=== PATIENT | female | born 1975 | race African-American/Black ===

== ENCOUNTER 2022-05-28 16:58 | Inpatient (IN) | payer MEDICAID ==
[~2022-05-28] VITALS: Ht 171.4 cm; Wt 69.0 kg
[2022-05-28 17:33] LABS: BASOPHILS % 0.6 % (0.0-2.0); EOSINOPHILS % 2.8 % (0.0-5.0); HEMATOCRIT. 35.6 % (36.0-48.0); HEMOGLOBIN. 11.5 g/dL (12.0-16.0); LYMPHOCYTES % 28.3 % (20.0-50.0); MEAN CORPUSCULAR HEMOGLOBIN 22.6 pg (28.0-32.0); MEAN CORPUSCULAR VOLUME 70.3 fL (81.0-99.0); MEAN PLATELET VOLUME 8.6 fl (7.4-10.4); MONOCYTES % 7.8 % (2.0-8.0); NEUTROPHILS % 60.5 % (40.0-76.0); PLATELET 232 x1000/uL (130-400); RED BLOOD CELL COUNT 5.07 mill/uL (4.2-5.4); RED CELL DISTRIBUTION WIDTH 23.5 % (11.6-14.6)
[2022-05-28 17:40] LABS: CHLORIDE 108 mEq/L (98-107)
[2022-05-28 17:57] LABS: ETHANOL BLOOD < 10 mg/dL
[2022-05-28 18:00] LABS: HCG SCREEN NEGATIVE
[2022-05-28 18:08] LABS: PLATELET ESTIMATE NORMAL
[2022-05-28 19:55] LABS: CLARITY URINE CLEAR (CLEAR); COLOR URINE YELLOW (YELLOW); KETONES URINE NEGATIVE (NEGATIVE); LEUKOCYTE ESTERASE URINE NEGATIVE (NEGATIVE); NITRITE URINE NEGATIVE (NEGATIVE); OCCULT BLOOD URINE NEGATIVE (NEGATIVE); PROTEIN URINE NEGATIVE (NEGATIVE); SPECIFIC GRAVITY URINE 1.015 (1.005-1.030)
[2022-05-28 20:14] LABS: *AMPHETAMINES SCREEN URINE NEGATIVE (NEGATIVE); *BARBITURATES SCREEN URINE NEGATIVE (NEGATIVE); *BENZODIAZEPINES SCREEN URINE NEGATIVE (NEGATIVE); CANNABINOID URINE SCREEN NEGATIVE (NEGATIVE); METHADONE URINE SCREEN NEGATIVE (NEGATIVE); OPIATES URINE SCREEN NEGATIVE (NEGATIVE); PHENCYCLIDINE URINE SCREEN NEGATIVE (NEGATIVE)
[2022-05-28 20:17] LABS: *COCAINE SCREEN URINE PRESUMTIVE POSITIVE (NEGATIVE)
[2022-05-28] MEDS ORDERED: ASPIRIN 81MG TABLET PO ONE (21:00)
[2022-05-28] MEDS ORDERED: FUROSEMIDE 40MG/4ML VIAL IVP ONE (21:00)
[2022-05-28] MEDS ORDERED: POTASSIUM CHLORIDE 20MEQ TABLET SR PO NR (22:00)
[2022-05-28 23:10] LABS: PHOSPHORUS 3.5 mg/dL (2.5-4.9)
[2022-05-29] MEDS ORDERED: HYDROCODONE/ACETAMINOPHEN 5/325MG TABLET PO PRN (00:15)
[2022-05-29] MEDS ORDERED: GUAIFENESIN 200MG/10ML SUGAR FREE UDC PO PRN (00:15)
[2022-05-29] MEDS ORDERED: HYDRALAZINE 20MG/ML VIAL IV PRN (00:15)
[2022-05-29] MEDS ORDERED: CLONIDINE 0.1MG TABLET PO PRN (00:15)
[2022-05-29] MEDS ORDERED: ONDANSETRON HCL 4MG/2ML INJ IV PRN (00:15)
[2022-05-29] MEDS ORDERED: DIPHENHYDRAMINE 50MG/ML VIAL IV PRN (00:15)
[2022-05-29] MEDS ORDERED: DOCUSATE SODIUM 100MG CAPSULE PO PRN (00:15)
[2022-05-29] MEDS ORDERED: MAGNESIUM/ALUMINUM HYDROXIDE/SIMETHICONE 30ML UDC PO PRN (00:15)
[2022-05-29] MEDS ORDERED: IPRATROPIUM/ALBUTEROL 0.5-3(2.5)MG/3ML NEB HHN PRN (00:15)
[2022-05-29] MEDS ORDERED: ACETAMINOPHEN 325MG TABLET PO PRN (00:15)
[2022-05-29 10:00] VITALS: BP 176/113
[2022-05-29] MEDS ORDERED: NALOXONE HCL 0.4MG/ML VIAL IV PRN (10:30)
[2022-05-29] MEDS: ENOXAPARIN 40MG/0.4ML SYR SUBCUT SCH (10:47)
[2022-05-29 12:00] VITALS: BP 174/98
[2022-05-29] MEDS: HYDRALAZINE HCL 50MG TABLET PO SCH ×2 (14:00→20:28)
[2022-05-29 16:04] VITALS: BP 99/70
[2022-05-29 17:28] LABS: CREATINE KINASE 117 IU/L (26-192); CREATINE KINASE MB FRACTION < 1.0 ng/mL (0.5-3.6)
[2022-05-29 17:29] LABS: CHLORIDE 107 mEq/L (98-107)
[2022-05-29 20:00] VITALS: BP 150/80
[2022-05-29] MEDS: SODIUM CHLORIDE 0.9% INJ 3ML FLUSH IVF SCH (20:30)
[2022-05-30] VITALS: BP 158/79
[2022-05-30 00:57] LABS: CREATINE KINASE 96 IU/L (26-192); CREATINE KINASE MB FRACTION < 1.0 ng/mL (0.5-3.6)
[2022-05-30 05:00] VITALS: BP 165/93
[2022-05-30] MEDS: SODIUM CHLORIDE 0.9% INJ 3ML FLUSH IVF SCH (05:32)
[2022-05-30] MEDS: HYDRALAZINE HCL 50MG TABLET PO SCH (05:32)
[2022-05-30 08:00] VITALS: BP 149/78
[2022-05-30] MEDS: ENOXAPARIN 40MG/0.4ML SYR SUBCUT SCH ×2 (08:39→08:43)
[2022-05-30] MEDS ORDERED: LOSARTAN POTASSIUM 50 MG TABLET PO SCH (12:00)
== END 2022-05-30 09:30 | disposition left against medical advice (07) | DRG 816 ==
LOC: ER 16:58 → MICUSO 21:54 → UNDODISIN 23:00 → 6WST 05-29 10:23
PROVIDERS: ADMIT Internal Medicine; ATTEND Internal Medicine
DX: T40.5X1A Poisoning by cocaine, accidental (unintentional), initial encounter (principal); G92.8 Other toxic encephalopathy; I50.23 Acute on chronic systolic (congestive) heart failure; I11.0 Hypertensive heart disease with heart failure; I42.9 Cardiomyopathy, unspecified; E87.6 Hypokalemia; F14.10 Cocaine abuse, uncomplicated; I34.0 Nonrheumatic mitral (valve) insufficiency; E87.70 Fluid overload, unspecified; F17.200 Nicotine dependence, unspecified, uncomplicated; F12.90 Cannabis use, unspecified, uncomplicated; F19.10 Other psychoactive substance abuse, uncomplicated; Z53.29 Procedure and treatment not carried out because of patient's decision for other reasons; Z82.49 Family history of ischemic heart disease and other diseases of the circulatory system
CPT/HCPCS: 36415; 71045; 80048; 80053; 80061; 80305; 80307; 80320; 80329; 81003; 82140; 82550; 82553; 83036; 83735; 83880; 84100; 84439; 84443; 84484; 84703; 85025; 85379; 93005; 93306; 99285; J0360; J1650; J1940; G0480